=== PATIENT | female | born 1985 | race Caucasian/White ===

== ENCOUNTER 2016-04-12 11:01 | Emergency (ER) | payer MEDICAID ==
[2015-08-03 05:52] VITALS: BMI 31.3
[~2016-04-12 11:01] MED LIST: ADIPEX-P37.5 M1 PO; DIABETA5 MG PO; FOLATE0.4 MG; GLUCOPHAGE500 MG PO; GLYBURIDE5 M1 PO; HYDROCODONE-APA1 TAB PO; IBUPROFEN600 MG PO; PRENATAL COMPLE1 TAB PO; TOPAMAX200 MG PO
== END 2016-04-12 12:23 | disposition home or self-care (01) ==
LOC: D.ER 11:01
DX: S70.02XA Contusion of left hip, initial encounter (principal); W01.0XXA Fall on same level from slipping, tripping and stumbling without subsequent striking against object, initial encounter; Y93.89 Activity, other specified; Y92.39 Other specified sports and athletic area as the place of occurrence of the external cause; F17.200 Nicotine dependence, unspecified, uncomplicated; M25.552 Pain in left hip; E11.9 Type 2 diabetes mellitus without complications

== ENCOUNTER 2016-07-13 14:10 | Emergency (ER) | payer MEDICAID ==
[2015-08-03 05:52] VITALS: BMI 31.3
[2016-07-13 16:18] LABS: APPEARANCE CLEAR (CLEAR); BILIRUBIN NEGATIVE (NEGATIVE); COLOR YELLOW (YELLOW); GLUCOSE NEGATIVE (NEGATIVE); KETONE NEGATIVE (NEGATIVE); LEUKOCYTE ESTERASE TRACE (NEGATIVE); NITRITE NEGATIVE (NEGATIVE); PROTEIN TRACE mg/dL (NEGATIVE); SPECIFIC GRAVITY 1.015 (1.005-1.020); UROBILINOGEN NORMAL (NORMAL)
[2016-07-13 16:19] LABS: BASOPHILS 0.2 % (0-2); EOSINOPHILS 2.5 % (0-7); HEMATOCRIT 40.3 % (36.0-48.0); HEMOGLOBIN 13.4 g/dL (12-16); IMMATURE GRANULOCYTES 0.3 % (0-5); LYMPHOCYTES 25.8 % (15-50); MCH 30.2 pg (26.0-34.0); MCHC 33.3 g/dL (31.0-37.0); MEAN PLATELET VOLUME 10.3 fL (7.4-10.4); MONOCYTES 7.2 % (2-11); RBC 4.43 10x6/uL (4.00-5.40); RDW 12.9 % (11.5-14.5); WBC 9.2 10x3/uL (4.8-10.8)
[2016-07-13 16:19] LABS: BACTERIA MODERATE /hpf (NONE SEEN); EPITHELIAL CELLS 0-5 /hpf (0-5); RED CELLS - URINE 0-5 /hpf (0-5)
[2016-07-13 16:20] LABS: PLATELET COUNT 304 10x3/uL (130-400)
[2016-07-13 16:33] LABS: ALKALINE PHOSPHATASE 66 U/L (46-116); ALT (SGPT) 20 U/L (10-68); CALC OSMOLALITY 277 mosm/kg (275-300); CALCIUM 8.8 mg/dL (8.5-10.1); CARBON DIOXIDE 25.7 mmol/L (21.0-32.0); CHLORIDE - SERUM 105 mmol/L (98-107); CREATININE - SERUM 0.6 mg/dL (0.6-1.3); GLUCOSE 103 mg/dL (74-106); SODIUM 140 mmol/L (136-145); UREA NITROGEN 11 mg/dL (7-18); eGFR NON AFRICAN AMERICAN > 90 mL/min (90-120)
== END 2016-07-13 17:16 | disposition home or self-care (01) ==
LOC: D.ER 14:10
PROVIDERS: Emergency Medicine; Physician Assistant Medical
DX: N39.0 Urinary tract infection, site not specified (principal); E28.2 Polycystic ovarian syndrome

== ENCOUNTER 2017-02-20 08:30 | Inpatient (IN) | payer MEDICAID ==
[~2017-02-20] VITALS: Ht 175.3 cm; Wt 86.2 kg
[2017-03-28] MEDS ORDERED: LAMICTAL ODT100 MG PO (09:35)
[2017-03-31 06:08] LABS: HCG URINE NEGATIVE (NEGATIVE)
[2017-03-31 10:15] VITALS: BP 112/71
[2017-03-31 10:30] VITALS: BP 120/64
[2017-03-31 10:45] VITALS: BP 108/53
[2017-03-31 11:15] VITALS: BP 111/64
[2017-03-31 19:47] LABS: BASOPHILS 0.1 % (0-2); EOSINOPHILS 0.3 % (0-7); HEMATOCRIT 38.4 % (36.0-48.0); HEMOGLOBIN 12.9 g/dL (12-16); IMMATURE GRANULOCYTES 0.1 % (0-5); LYMPHOCYTES 16.9 % (15-50); MCHC 33.6 g/dL (31.0-37.0); MCV 89.3 fL (80.0-100.0); MEAN PLATELET VOLUME 10.5 fL (7.4-10.4); MONOCYTES 9.4 % (2-11); NEUTROPHILS 73.2 % (40-80); PLATELET COUNT 205 10x3/uL (130-400); RDW 12.6 % (11.5-14.5); WBC 11.8 10x3/uL (4.8-10.8)
[2017-03-31 19:50] VITALS: BP 101/52
[2017-03-31 20:09] LABS: ALKALINE PHOSPHATASE 49 U/L (46-116); ALT (SGPT) 13 U/L (10-68); CALC OSMOLALITY 272 mosm/kg (275-300); CARBON DIOXIDE 25.4 mmol/L (21.0-32.0); CHLORIDE - SERUM 102 mmol/L (98-107); CREATININE - SERUM 0.6 mg/dL (0.6-1.3); GLUCOSE 159 mg/dL (74-106); PROTEIN - SERUM 6.1 g/dL (6.4-8.2); SODIUM 136 mmol/L (136-145); UREA NITROGEN 8 mg/dL (7-18); eGFR NON AFRICAN AMERICAN > 90 mL/min (90-120)
[2017-03-31 23:54] VITALS: BP 90/55
[2017-04-01 03:55] VITALS: BP 101/52; BMI 28.1
[2017-04-01 06:04] LABS: BASOPHILS 0.1 % (0-2); EOSINOPHILS 2.3 % (0-7); HEMATOCRIT 38.1 % (36.0-48.0); HEMOGLOBIN 12.4 g/dL (12-16); IMMATURE GRANULOCYTES 0.2 % (0-5); LYMPHOCYTES 35.5 % (15-50); MCH 29.6 pg (26.0-34.0); MCHC 32.5 g/dL (31.0-37.0); MCV 90.9 fL (80.0-100.0); MEAN PLATELET VOLUME 10.7 fL (7.4-10.4); MONOCYTES 8.9 % (2-11); PLATELET COUNT 189 10x3/uL (130-400); RBC 4.19 10x6/uL (4.00-5.40); RDW 12.8 % (11.5-14.5); WBC 10.2 10x3/uL (4.8-10.8)
[2017-04-01 06:21] LABS: CALC OSMOLALITY 270 mosm/kg (275-300); CALCIUM 8.7 mg/dL (8.5-10.1); CARBON DIOXIDE 27.2 mmol/L (21.0-32.0); CHLORIDE - SERUM 101 mmol/L (98-107); CREATININE - SERUM 0.7 mg/dL (0.6-1.3); GLUCOSE 124 mg/dL (74-106); POTASSIUM - SERUM 3.8 mmol/L (3.5-5.1); SODIUM 136 mmol/L (136-145); UREA NITROGEN 7 mg/dL (7-18); eGFR NON AFRICAN AMERICAN > 90 mL/min (90-120)
[2017-04-01 08:27] VITALS: BP 90/50
[2017-04-01 12:43] VITALS: BP 102/52
[2017-04-01 13:26] VITALS: Ht 175.3 cm; Wt 86.2 kg
[2017-04-01 16:32] VITALS: BP 97/49
[2017-04-01 19:27] VITALS: BP 106/53
[2017-04-02 00:09] VITALS: BP 100/52
[2017-04-02 04:35] VITALS: BP 109/55
[2017-04-02 07:54] VITALS: BP 114/67
[2017-04-02] MEDS ORDERED: HYDROCODONE-APA1 TAB PO (09:17)
== END 2017-04-02 10:45 | disposition home or self-care (01) | DRG 743 ==
LOC: D.SDCHOLD 09:30 → D.LD 03-31 19:11
PROVIDERS: Obstetrics & Gynecology
PROC: 0UT90ZZ Resection of Uterus, Open Approach (ICD-10-PCS; principal; 2017-03-31)
PROC: 0UT70ZZ Resection of Bilateral Fallopian Tubes, Open Approach (ICD-10-PCS; 2017-03-31)
DX: N92.0 Excessive and frequent menstruation with regular cycle (principal); N94.6 Dysmenorrhea, unspecified; E11.9 Type 2 diabetes mellitus without complications; F32.9 Major depressive disorder, single episode, unspecified; N32.89 Other specified disorders of bladder

== ENCOUNTER 2017-02-24 23:43 | Emergency (ER) | payer MEDICAID ==
[2015-08-03 05:52] VITALS: BMI 31.3
[2017-02-25 00:52] LABS: BASOPHILS 0.2 % (0-2); EOSINOPHILS 2.3 % (0-7); HEMATOCRIT 46.1 % (36.0-48.0); IMMATURE GRANULOCYTES 0.1 % (0-5); LYMPHOCYTES 31.5 % (15-50); MCH 30.8 pg (26.0-34.0); MCHC 34.7 g/dL (31.0-37.0); MCV 88.8 fL (80.0-100.0); MEAN PLATELET VOLUME 10.8 fL (7.4-10.4); MONOCYTES 7.8 % (2-11); NEUTROPHILS 58.1 % (40-80); RBC 5.19 10x6/uL (4.00-5.40); RDW 12.3 % (11.5-14.5); WBC 9.3 10x3/uL (4.8-10.8)
[2017-02-25 00:56] LABS: PLATELET COUNT 236 10x3/uL (130-400)
[2017-02-25 01:04] LABS: HCG SERUM NEGATIVE (NEGATIVE)
[2017-02-25 01:06] LABS: APPEARANCE CLEAR (CLEAR); BILIRUBIN NEGATIVE (NEGATIVE); COLOR YELLOW (YELLOW); GLUCOSE NEGATIVE (NEGATIVE); KETONE NEGATIVE (NEGATIVE); NITRITE NEGATIVE (NEGATIVE); PROTEIN NEGATIVE (NEGATIVE); UDS - AMPHET NEGATIVE QUAL (NEGATIVE); UDS - BARB NEGATIVE QUAL (NEGATIVE); UDS - BENZO NEGATIVE QUAL (NEGATIVE); UDS - COCAINE NEGATIVE QUAL (NEGATIVE); UDS - OPIATE NEGATIVE QUAL (NEGATIVE); UDS - PCP NEGATIVE QUAL (NEGATIVE); UDS - THC NEGATIVE QUAL (NEGATIVE); UROBILINOGEN NORMAL (NORMAL)
[2017-02-25 01:09] LABS: BACTERIA FEW /hpf (NONE SEEN); EPITHELIAL CELLS 0-5 /hpf (0-5); MUCUS <1+ /lpf (NONE SEEN); RED CELLS - URINE NONE SEEN /hpf (0-5); WHITE CELLS - URINE 0-5 /hpf (0-5)
[2017-02-25 01:09] LABS: ALKALINE PHOSPHATASE 54 U/L (46-116); ALT (SGPT) 20 U/L (10-68); AMYLASE - SERUM 60 U/L (25-115); BILIRUBIN - TOTAL 0.29 mg/dL (0.2-1.3); CALC OSMOLALITY 276 mosm/kg (275-300); CALCIUM 9.7 mg/dL (8.5-10.1); CARBON DIOXIDE 24.4 mmol/L (21.0-32.0); CHLORIDE - SERUM 101 mmol/L (98-107); CREATININE - SERUM 0.7 mg/dL (0.6-1.3); GLUCOSE 107 mg/dL (74-106); LIPASE 138 U/L (73-393); POTASSIUM - SERUM 3.8 mmol/L (3.5-5.1); PROTEIN - SERUM 7.6 g/dL (6.4-8.2); SODIUM 138 mmol/L (136-145); UREA NITROGEN 14 mg/dL (7-18); eGFR NON AFRICAN AMERICAN > 90 mL/min (90-120)
== END 2017-02-25 02:30 | disposition home or self-care (01) ==
LOC: D.ER 23:43
PROVIDERS: Family Medicine
DX: R10.9 Unspecified abdominal pain (principal); E11.9 Type 2 diabetes mellitus without complications; E28.2 Polycystic ovarian syndrome; F17.200 Nicotine dependence, unspecified, uncomplicated

== ENCOUNTER 2018-01-03 21:57 | Emergency (ER) | payer MEDICAID ==
[~2018-01-03] VITALS: Ht 175.3 cm; Wt 88.6 kg
[~2018-01-03 21:57] MED LIST changes: +LAMICTAL ODT100 MG PO
[2018-01-03 22:03] VITALS: Ht 175.3 cm; Wt 88.6 kg
[2018-01-03 22:32] LABS: BASOPHILS 0.2 % (0-2); EOSINOPHILS 5.2 % (0-7); HEMATOCRIT 43.4 % (36.0-48.0); IMMATURE GRANULOCYTES 0.1 % (0-5); LYMPHOCYTES 38.8 % (15-50); MCH 31.2 pg (26.0-34.0); MCHC 34.6 g/dL (31.0-37.0); MCV 90.2 fL (80.0-100.0); MEAN PLATELET VOLUME 10.9 fL (7.4-10.4); MONOCYTES 7.4 % (2-11); NEUTROPHILS 48.3 % (40-80); PLATELET COUNT 213 10x3/uL (130-400); RBC 4.81 10x6/uL (4.00-5.40); RDW 12.6 % (11.5-14.5); WBC 8.1 10x3/uL (4.8-10.8)
[2018-01-03 22:41] LABS: ALBUMIN 3.2 g/dL (3.4-5.0); ALKALINE PHOSPHATASE 62 U/L (46-116); ALT (SGPT) 24 U/L (10-68); BILIRUBIN - TOTAL 0.23 mg/dL (0.2-1.3); CALC OSMOLALITY 283 mosm/kg (275-300); CALCIUM 8.7 mg/dL (8.5-10.1); CARBON DIOXIDE 27.3 mmol/L (21.0-32.0); CHLORIDE - SERUM 105 mmol/L (98-107); CREATININE - SERUM 0.7 mg/dL (0.6-1.3); GLUCOSE 170 mg/dL (74-106); POTASSIUM - SERUM 3.7 mmol/L (3.5-5.1); PROTEIN - SERUM 6.9 g/dL (6.4-8.2); SODIUM 140 mmol/L (136-145); UREA NITROGEN 14 mg/dL (7-18); eGFR NON AFRICAN AMERICAN > 90 mL/min (90-120)
[2018-01-03 22:45] LABS: AMYLASE - SERUM 68 U/L (25-115); LIPASE 184 U/L (73-393); TROPONIN-I < 0.017 ng/mL (0.000-0.060)
[2018-01-04 00:24] LABS: APPEARANCE CLEAR (CLEAR); BILIRUBIN NEGATIVE (NEGATIVE); COLOR YELLOW (YELLOW); GLUCOSE NEGATIVE (NEGATIVE); KETONE NEGATIVE (NEGATIVE); NITRITE NEGATIVE (NEGATIVE); PROTEIN NEGATIVE (NEGATIVE); UROBILINOGEN NORMAL (NORMAL)
[2018-01-04] MEDS ORDERED: NAPROSYN500 MG PO (02:01)
[2018-01-04 02:24] VITALS: BP 101/48
== END 2018-01-04 02:24 | disposition home or self-care (01) ==
LOC: D.ER 21:57
PROVIDERS: Family Medicine
DX: R10.30 Lower abdominal pain, unspecified (principal); Q24.8 Other specified congenital malformations of heart; E11.9 Type 2 diabetes mellitus without complications; F17.200 Nicotine dependence, unspecified, uncomplicated

== ENCOUNTER 2018-04-13 21:05 | Emergency (ER) | payer MEDICAID ==
[~2018-04-13] VITALS: Ht 175.3 cm; Wt 88.6 kg
[~2018-04-13 21:05] MED LIST changes: +NAPROSYN500 MG PO
[2018-04-13 21:11] VITALS: Ht 175.3 cm; Wt 88.6 kg
[2018-04-13] MEDS ORDERED: GABAPENTIN100 MG PO (21:13)
[2018-04-13] MEDS ORDERED: ULTRAM50 MG PO (21:13)
[2018-04-13] MEDS ORDERED: TORADOL10 MG PO (22:42)
[2018-04-13 23:27] VITALS: BP 178/84
== END 2018-04-13 23:28 | disposition home or self-care (01) ==
LOC: D.ER 21:05
DX: S93.401A Sprain of unspecified ligament of right ankle, initial encounter (principal); X58.XXXA Exposure to other specified factors, initial encounter; Y93.89 Activity, other specified; Y92.019 Unspecified place in single-family (private) house as the place of occurrence of the external cause

== ENCOUNTER 2018-05-22 16:10 | Emergency (ER) | payer MEDICAID ==
[~2018-05-22] VITALS: Ht 175.3 cm; Wt 92.3 kg
[~2018-05-22 16:10] MED LIST changes: +GABAPENTIN100 MG PO; +TORADOL10 MG PO; +ULTRAM50 MG PO
[2018-05-22 16:14] VITALS: Ht 175.3 cm; Wt 92.3 kg
[2018-05-22] MEDS ORDERED: MEDROL DOSE PACK4 MG PO (19:41)
[2018-05-22] MEDS ORDERED: ROBAXIN500 MG PO (19:41)
[2018-05-22] MEDS ORDERED: ULTRAM50 MG PO (19:41)
[2018-05-22 20:23] VITALS: BP 121/83
== END 2018-05-22 20:23 | disposition home or self-care (01) ==
LOC: D.ER 16:10
DX: S32.2XXA Fracture of coccyx, initial encounter for closed fracture (principal); W18.30XA Fall on same level, unspecified, initial encounter; Y93.89 Activity, other specified; Y92.019 Unspecified place in single-family (private) house as the place of occurrence of the external cause; M53.3 Sacrococcygeal disorders, not elsewhere classified

== ENCOUNTER 2018-06-14 11:38 | Emergency (ER) | payer MEDICAID ==
[~2018-06-14] VITALS: Ht 175.3 cm; Wt 88.6 kg
[~2018-06-14 11:38] MED LIST changes: +MEDROL DOSE PACK4 MG PO; +ROBAXIN500 MG PO
[2018-06-14 11:52] VITALS: Ht 175.3 cm; Wt 88.6 kg
[2018-06-14] MEDS ORDERED: TYLENOL W/CODEI1 TAB PO (12:29)
[2018-06-14] MEDS ORDERED: ERYTHROMYCIN OPT1 GM LEFT EYE (12:29)
[2018-06-14 12:56] VITALS: BP 117/65
== END 2018-06-14 12:57 | disposition home or self-care (01) ==
LOC: D.ER 11:38
DX: S05.02XA Injury of conjunctiva and corneal abrasion without foreign body, left eye, initial encounter (principal); W22.8XXA Striking against or struck by other objects, initial encounter; Y93.89 Activity, other specified; Y92.89 Other specified places as the place of occurrence of the external cause

== ENCOUNTER 2018-07-21 16:46 | Emergency (ER) | payer MEDICAID ==
[~2018-07-21] VITALS: Ht 175.3 cm; Wt 95.0 kg
[~2018-07-21 16:46] MED LIST changes: +ERYTHROMYCIN OPT1 GM LEFT EYE; +TYLENOL W/CODEI1 TAB PO
[2018-07-21 16:50] VITALS: Ht 175.3 cm; Wt 95.0 kg
[2018-07-21] MEDS ORDERED: POLYTRIM EYE DR10 ML LEFT EYE (17:44)
[2018-07-21 17:53] VITALS: BP 143/72
== END 2018-07-21 17:54 | disposition home or self-care (01) ==
LOC: D.ER 16:46
DX: H10.32 Unspecified acute conjunctivitis, left eye (principal)

== ENCOUNTER 2018-08-25 16:34 | Observation (INO) | payer MEDICAID ==
[~2018-08-25] VITALS: Ht 175.3 cm; Wt 84.5 kg
[~2018-08-25 16:34] MED LIST changes: +POLYTRIM EYE DR10 ML LEFT EYE
[2018-08-25 17:57] LABS: BASOPHILS 0.2 % (0-2); EOSINOPHILS 0.7 % (0-7); HEMATOCRIT 43.5 % (36.0-48.0); HEMOGLOBIN 15.3 g/dL (12-16); IMMATURE GRANULOCYTES 0.3 % (0-5); LYMPHOCYTES 17.6 % (15-50); MCH 31.2 pg (26.0-34.0); MCHC 35.2 g/dL (31.0-37.0); MCV 88.6 fL (80.0-100.0); MEAN PLATELET VOLUME 10.9 fL (7.4-10.4); MONOCYTES 5.6 % (2-11); NEUTROPHILS 75.6 % (40-80); PLATELET COUNT 214 10x3/uL (130-400); RBC 4.91 10x6/uL (4.00-5.40); RDW 12.8 % (11.5-14.5)
[2018-08-25 18:14] LABS: ALBUMIN 3.5 g/dL (3.4-5.0); ALKALINE PHOSPHATASE 68 U/L (46-116); ALT (SGPT) 24 U/L (10-68); BILIRUBIN - TOTAL 0.42 mg/dL (0.2-1.3); C-REACTIVE PROTEIN 2.2 mg/dL (0.0-0.9); CALC OSMOLALITY 274 mosm/kg (275-300); CALCIUM 9.1 mg/dL (8.5-10.1); CARBON DIOXIDE 26.1 mmol/L (21.0-32.0); CHLORIDE - SERUM 102 mmol/L (98-107); CREATININE - SERUM 0.6 mg/dL (0.6-1.3); GLUCOSE 103 mg/dL (74-106); POTASSIUM - SERUM 3.7 mmol/L (3.5-5.1); PROTEIN - SERUM 7.3 g/dL (6.4-8.2); SODIUM 138 mmol/L (136-145); UREA NITROGEN 9 mg/dL (7-18); eGFR NON AFRICAN AMERICAN > 90 mL/min (90-120)
[2018-08-25 18:36] VITALS: BP 115/75
--- NOTE | 2018-08-25 18:46 | NUR ---
PT SITTING IN BED. RESPIRATIONS ARE EVEN AND UNLABORED. NO DISTRESS NOTED AT THIS TIME. VSS. COLOR WNL FOR RACE. WILL CONTINUE TO MONITOR. UPDATED PATIENT ON PLAN OF CARE. ADVISED WAITING ON ROOM TO BE CLEANED AT THIS TIME. IV PATENT AND INFUSING AT THIS TIME WITH NO REDNESS OR SIGNS OF INFILTRATION NOTED.
--- NOTE | 2018-08-25 19:04 | NUR ---
THIS NURSE PRESENT IN ROOM WHILE SURGEON OBSERVES PT. PT LAYING SEMI-FOWLERS IN BED, RESPIRATIONS EVEN AND UNLABORED.
[2018-08-25 21:47] VITALS: BP 111/75
[2018-08-26 00:10] VITALS: BP 111/75; Ht 175.3 cm; Wt 84.5 kg
[2018-08-26 01:23] VITALS: BP 102/58
[2018-08-26 04:53] VITALS: BP 96/50
[2018-08-26 07:46] LABS: BASOPHILS 0.2 % (0-2); EOSINOPHILS 2.8 % (0-7); HEMATOCRIT 40.8 % (36.0-48.0); HEMOGLOBIN 13.5 g/dL (12-16); IMMATURE GRANULOCYTES 0.2 % (0-5); LYMPHOCYTES 22.4 % (15-50); MCH 30.1 pg (26.0-34.0); MCHC 33.1 g/dL (31.0-37.0); MEAN PLATELET VOLUME 11.3 fL (7.4-10.4); MONOCYTES 8.5 % (2-11); NEUTROPHILS 65.9 % (40-80); PLATELET COUNT 182 10x3/uL (130-400); RBC 4.48 10x6/uL (4.00-5.40)
[2018-08-26 07:55] LABS: MCV 91.1 fL (80.0-100.0)
--- NOTE | 2018-08-26 07:56 | NUR ---
PT RESTING IN BED. NO ACUTE DISTRESS NOTED. PT NPO FOR UPCOMING PROCEDURE. 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 IV TO LEFT WRIST WITH NS @ 125ML/HR INFUSING VIA PUMP. SITE WITHOUT REDNESS OR EDEMA. NO DRAINAGE AT THIS TIME FROM RIGHT BREAST, TENDER TO TOUCH SITE REDENED. DENIES FURTHER NEEDS AT THIS TIME. CL WITHIN REACH. ENCOURAGED TO CALL WITH NEEDS. CONTINUE POC
[2018-08-26 08:04] LABS: ALBUMIN 2.8 g/dL (3.4-5.0); ALKALINE PHOSPHATASE 58 U/L (46-116); ALT (SGPT) 20 U/L (10-68); BILIRUBIN - TOTAL 0.35 mg/dL (0.2-1.3); CALC OSMOLALITY 284 mosm/kg (275-300); CALCIUM 8.6 mg/dL (8.5-10.1); CARBON DIOXIDE 28.1 mmol/L (21.0-32.0); CHLORIDE - SERUM 107 mmol/L (98-107); CREATININE - SERUM 0.7 mg/dL (0.6-1.3); GLUCOSE 117 mg/dL (74-106); MAGNESIUM - SERUM 1.7 mg/dL (1.8-2.4); PHOSPHOROUS 4.3 mg/dL (2.5-4.9); POTASSIUM - SERUM 3.7 mmol/L (3.5-5.1); PROTEIN - SERUM 6.2 g/dL (6.4-8.2); SODIUM 143 mmol/L (136-145); UREA NITROGEN 11 mg/dL (7-18); eGFR NON AFRICAN AMERICAN > 90 mL/min (90-120)
[2018-08-26 08:39] VITALS: BP 98/68
--- NOTE | 2018-08-26 09:25 | NUR ---
PRE OP HERE TO TAKE PT TO SURGERY. NO ACUTE DISTRESS NOTED. TAKEN VIA BED
--- NOTE | 2018-08-26 10:50 | NUR ---
PT RETURNED FROM SURGERY VIA BED. ALERT AND ORIENTED. DRESSING C/D/I TO RIGHT BREAST. NO ACUTE DISTRESS NOTED. O2 @ 2L NC IN PLACE O2 SATS 98-100%. DECREASED O2 TO 1L AT THIS TIME. PT PABLO WELL. IV TO LEFT WRIST REMAINS INTACT AND PATENT. CL WITHIN REACH. ENCOURAGED TO CALL WITH NEEDS.
[2018-08-26] MEDS ORDERED: KEFLEX500 MG PO (11:30)
[2018-08-26] MEDS ORDERED: HYDROCODON-ACE1 EAC7 PO (11:31)
[2018-08-26 13:13] VITALS: BP 133/70
--- NOTE | 2018-08-26 13:25 | NUR ---
PT DISCHARGE INSTRUCTIONS GIVEN WITH PRESCRIPTIONS. DISCUSSED S/S OF INFECTION, LEAVING DRESSING INTACT TO RIGHT BREAST UNTIL SEEN BY DR. DIGGS ON Friday08/28/18. IV FROM LEFT WRIST D/C'D , CATH INTACT. DISCUSSED FOLLOW UP WITH DR. DIGGS ON 08/28/18. PT VOICES UNDERSTANDING. NO QUESTIONS VOICED AT THIS TIME. PT TAKEN OUT VIA W/C TO PRIVATE VEHICLE WITH ALL PERSONAL BELONGINGS.
--- NOTE | 2018-08-27 17:31 | DS ---
PATIENT:BULL DÍAZ :85 MEDICAL RECORD: [id number] DISCHARGE SUMMARY ADMISSION DATE: 08/25/18 DISCHARGE DATE: 08/26/18 PREOPERATIVE DIAGNOSIS: Right breast abscess. PROCEDURE: Incision and drainage of right breast abscess. OTHER DIAGNOSES: Include history of left hip surgery, history of right knee surgery, history of partial hysterectomy, history of , history of hysteroscopy with endometrial ablation. HOSPITAL COURSE: The patient presented to the Emergency Room with the right breast abscess. She underwent an ultrasound of this. She then underwent incision and drainage of the right breast abscess with packing. She is being dismissed home on [facility] as well as [place]. I or my nurse will see her in the office on Friday for packing removal. TRANSINT:[id number] Voice Confirmation ID: [id number] DOCUMENT ID: [id number] ANDREA DIGGS MD at 1731 CC: [id number] DICTATION DATE: 08/26/18 1021 LEGAL RESEARCHER: 08/26/18 1531 DIS IN 08/26/18 [facility] [address] [place] [address]
--- NOTE | 2018-08-28 16:07 | OP ---
PATIENT NAME: BULL DÍAZ MEDICAL RECORD: [id number] :85 LOCATION:D.MS [id number] ADMISSION DATE:08/25/18 SURGEON: JAVI DIGGS MD DATE OF OPERATION: 08/26/2018 PREOPERATIVE DIAGNOSIS: Right breast abscess. POSTOPERATIVE DIAGNOSIS: Right breast abscess. PROCEDURE: Incision and drainage of right breast abscess with packing. SURGEON: Javi Diggs MD SUPERVISOR PREP: None. BLOOD LOSS: Minimal. ANESTHESIA: General. COMPLICATIONS: None. The risks, possible complications, and alternatives to the procedure were explained to the patient. She elects to proceed. OPERATIVE COURSE: The patient was conveyed to the operating room electively on 08/26/2018. General anesthesia was induced by anesthesia staff. The right breast was sterilely prepped and draped. I interrogated the right breast with the ultrasound. I noted the abscess cavity. I compressed the breast. Purulence came out from both sides of where she had had the bar through her nipple. I made an axial incision at 3 o'clock. I then inserted a hemostat and spread it with the hemostat. I was able to express a large amount of purulence. Cultures were obtained. I irrigated in the wound with hydrogen peroxide. I then packed the wound with 1-inch iodoform gauze. A sterile dressing was applied. The patient was then extubated and conveyed to post-anesthesia care unit where she was in stable condition. She will be dismissed home on [facility] as well as [place]. I will see her in the office on Friday for packing removal. TRANSINT:[id number] Voice Confirmation ID: [id number] DOCUMENT ID: [id number] JAVI DIGGS MD at 1607 CC: ELISEO ELIZABETH [id number] DICTATION DATE: 08/26/18 1006 INDUSTRIAL TECHNOLOGIST: 08/26/18 1041 DIS IN 08/26/18 [place] [id number] [place] [id number]
--- NOTE | 2018-09-01 07:20 | MORECARE ---
CASE MANAGEMENT DISCHARGE SUMMARY PATIENT: BULL DÍAZ UNIT: [id number] ADM DATE: 08/25/18 AGE: 33 : 85 SEX: F ROOM/BED: [facility] AUTHOR: CHEYENNE CARROLL PHYSICIAN: REFERRING PHYSICIAN: ANDREA DIGGS MD DATE OF SERVICE: 09/01/18 Discharge Plan Patient Name: BULL DÍAZ Facility: [facility]:[place] : 1985 Planned Disposition: Anticipated Discharge Date: Discharge Date: 08/26/2018 Expected LOS: 0 Initial Reviewer: [email or web address] Initial Review Date: 09/01/2018 Generated: 09/01/18 8:20 am Patient Name: BULL DÍAZ Page [id number] at 0720 All edits/amendments must be made on the electronic document DICTATION DATE: 09/01/18719 TEACHER DRAMA: LILLY 09/01/18719 RPT#: [id number] DC DATE:08/26/18 STATUS: DIS IN [facility] [address] [place] [address] END OF REPORT
[2018-09-01 13:10] LABS: AEROBE ID Final report (())
== END 2018-08-26 13:25 | disposition home or self-care (01) ==
LOC: D.ER 16:34 → D.MS 18:36 → OBSVTIME 18:38 → D.MS 08-26 13:25
PROVIDERS: Family Medicine; ADMIT Surgery; ATTEND Surgery
DX: N61.1 Abscess of the breast and nipple (principal)

== ENCOUNTER 2018-10-30 16:14 | Emergency (ER) | payer MEDICAID ==
[~2018-10-30] VITALS: Ht 175.3 cm; Wt 93.2 kg
[~2018-10-30 16:14] MED LIST changes: +HYDROCODON-ACE1 EAC7 PO; +KEFLEX500 MG PO
[2018-10-30 16:35] VITALS: Ht 175.3 cm; Wt 93.2 kg
[2018-10-30] MEDS ORDERED: SPRINTEC 28 DA1 EAC1 PO (16:40)
[2018-10-30 16:59] LABS: BASOPHILS 0.3 % (0-2); EOSINOPHILS 1.8 % (0-7); HEMATOCRIT 42.4 % (36.0-48.0); HEMOGLOBIN 14.8 g/dL (12-16); IMMATURE GRANULOCYTES 0.1 % (0-5); LYMPHOCYTES 21.1 % (15-50); MCH 30.6 pg (26.0-34.0); MCHC 34.9 g/dL (31.0-37.0); MCV 87.6 fL (80.0-100.0); MEAN PLATELET VOLUME 10.9 fL (7.4-10.4); MONOCYTES 6.6 % (2-11); NEUTROPHILS 70.1 % (40-80); PLATELET COUNT 203 10x3/uL (130-400); RBC 4.84 10x6/uL (4.00-5.40); RDW 12.8 % (11.5-14.5); WBC 10.1 10x3/uL (4.8-10.8)
[2018-10-30 17:53] LABS: ALBUMIN 3.6 g/dL (3.4-5.0); ALKALINE PHOSPHATASE 58 U/L (46-116); ALT (SGPT) 17 U/L (10-68); BILIRUBIN - TOTAL 0.55 mg/dL (0.2-1.3); CALC OSMOLALITY 274 mosm/kg (275-300); CALCIUM 8.8 mg/dL (8.5-10.1); CARBON DIOXIDE 25.7 mmol/L (21.0-32.0); CHLORIDE - SERUM 104 mmol/L (98-107); CREATININE - SERUM 0.8 mg/dL (0.6-1.3); GLUCOSE 151 mg/dL (74-106); POTASSIUM - SERUM 3.6 mmol/L (3.5-5.1); PROTEIN - SERUM 7.6 g/dL (6.4-8.2); SODIUM 137 mmol/L (136-145); UREA NITROGEN 7 mg/dL (7-18); eGFR NON AFRICAN AMERICAN 87 mL/min (90-120)
[2018-10-30] MEDS ORDERED: CLEOCIN HCL300 MG PO (19:54)
[2018-10-30 20:40] VITALS: BP 99/75
== END 2018-10-30 20:40 | disposition home or self-care (01) ==
LOC: D.ER 16:14
PROVIDERS: Family Medicine
DX: N61.0 Mastitis without abscess (principal)

== ENCOUNTER 2020-07-21 05:45 | Day surgery (SDC) | payer MEDICAID ==
[2020-07-18 11:04] LABS: BASOPHILS 0.8 % (0-2); EOSINOPHILS 1.9 % (0-7); HEMATOCRIT 46.2 % (36.0-48.0); HEMOGLOBIN 15.6 g/dL (12-16); MCH 29.7 pg (26.0-34.0); MCHC 33.7 g/dL (31.0-37.0); MCV 88.1 fL (80.0-100.0); MEAN PLATELET VOLUME 8.9 fL (7.4-10.4); MONOCYTES 7.4 % (2-11); NEUTROPHILS 68.9 % (40-80); PLATELET COUNT 241 10x3/uL (130-400); RBC 5.24 10x6/uL (4.00-5.40); RDW 12.9 % (11.5-14.5); WBC 10.4 10x3/uL (4.8-10.8)
[2020-07-18 11:12] LABS: CALC OSMOLALITY 272 mosm/kg (275-300); CALCIUM 9.1 mg/dL (8.5-10.1); CARBON DIOXIDE 23.7 mmol/L (21.0-32.0); CHLORIDE - SERUM 103 mmol/L (98-107); CREATININE - SERUM 0.6 mg/dL (0.6-1.3); GLUCOSE 104 mg/dL (74-106); POTASSIUM - SERUM 3.9 mmol/L (3.5-5.1); SODIUM 137 mmol/L (136-145); UREA NITROGEN 10 mg/dL (7-18); eGFR NON AFRICAN AMERICAN > 90 mL/min (90-120)
[~2020-07-21] VITALS: Ht 175.3 cm; Wt 100.2 kg
[~2020-07-21 05:45] MED LIST changes: +CLEOCIN HCL300 MG PO; +SPRINTEC 28 DA1 EAC1 PO
[2020-07-21 06:54] VITALS: BP 115/67; Ht 175.3 cm; Wt 100.2 kg
--- NOTE | 2020-07-21 08:54 | NUR ---
PT AWAKENING, OPA REMOVED
--- NOTE | 2020-07-21 11:01 | NUR ---
AMBULATED TO BR AND VOIDED WIHTOUT DIFFICULTY. IV D/C'D WITH CANNULA INTACT, PRESSURE HELD AND DRSG PLACED. DISCHARGE INSTRUCTIONS GIVEN AND PT VERBALIZED AN UNDERSTANDING. DISCHARGED HOME IN STABLE CONDITION.
--- NOTE | 2020-08-07 15:57 | OP ---
PATIENT NAME: BULL DÍAZ MEDICAL RECORD: [id number] :85 LOCATION:D.OPS ADMISSION DATE: SURGEON: JI AARON MD DATE OF OPERATION: 07/21/2020 PREOPERATIVE DIAGNOSES: 1. Chronic pelvic pain, status post hysterectomy. 2. 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 3. Hypervascular small bowel noted. POSTOPERATIVE DIAGNOSES: 1. Chronic pelvic pain, status post hysterectomy. 2. 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 3. Hypervascular small bowel noted. PROCEDURE: Diagnostic laparoscopy. SURGEON: Ji Aaron MD ANESTHESIA: General endotracheal. INTRAVENOUS FLUIDS: Per anesthesia record. SPECIMENS: None. COMPLICATIONS: None apparent. ESTIMATED BLOOD LOSS: Minimal. FINDINGS: 1. Extensive adhesive disease involving the omentum and the anterior abdominal wall, obscuring the placement of lower abdominal trocars and obscuring visualization of the pelvis. 2. Hypervascular loops of small bowel noted consistent with enteritis. PROCEDURE: The patient was taken to the operating room where general anesthesia was achieved without difficulty. The patient was prepped and draped in normal sterile fashion in the dorsal supine position. The bladder had been drained of approximately 200 cc of clear yellow urine. At this point, attention was turned to the umbilicus where a 5-mm incision was made in the inferior aspect of the umbilicus. A 5 mm bladeless trocar was used to enter the intraperitoneal space under direct visualization of the laparoscope. The introducer was removed and the camera revealed intraperitoneal placement. The patient was then insufflated and opening pressure was found to be less than 8 mmHg. The patient was then insufflated and the scope was placed and intraperitoneal placement was confirmed. Dense omental adhesions were noted to previous Pfannenstiel skin incision allowing only minimal visualization from the umbilical port. I saw that it was unsafe to place any further ports secondary to obscured visualization. Attempts were made to view the area of question in the pelvis. However, visualization was limited due to the omentum. The scope was removed and the patient was desufflated and trocars removed. The skin was repaired with 3-0 Vicryl in an interrupted fashion. The patient tolerated the procedure well and was transported to postanesthesia recovery stable without incident. OPERATIVE REPORT [id number] BULL DÍAZ TRANSINT:[id number] Voice Confirmation ID: [id number] DOCUMENT ID: [id number] JI AARON MD at 1557 CC: [id number] DICTATION DATE: 08/07/20316 QUALITY CONTROL TECH: 08/07/20 0650 [facility] 07/21/20 [place] [id number] [place] [id number]
== END 2020-07-21 11:00 | disposition home or self-care (01) ==
LOC: D.OPS 05:45
PROVIDERS: Anesthesiology; ATTEND Obstetrics & Gynecology
DX: R10.2 Pelvic and perineal pain (principal); Z98.890 Other specified postprocedural states; K66.0 Peritoneal adhesions (postprocedural) (postinfection); K63.89 Other specified diseases of intestine

== ENCOUNTER 2020-07-23 22:44 | Emergency (ER) | payer MEDICAID ==
[~2020-07-23] VITALS: Ht 175.3 cm; Wt 95.5 kg
[2020-07-23 22:51] VITALS: BP 141/85; Ht 175.3 cm; Wt 95.5 kg
[2020-07-23] MEDS ORDERED: KENALOG 0.1 % 115 GM TOPICAL (23:41)
[2020-07-23] MEDS ORDERED: HYDROXYZINE HCL50 MG PO (23:41)
[2020-07-23] MEDS ORDERED: MEDROL DOSE PACK4 MG PO (23:41)
== END 2020-07-23 23:59 | disposition home or self-care (01) ==
LOC: D.ER 22:44
DX: T78.49XA Other allergy, initial encounter (principal); L73.9 Follicular disorder, unspecified; K21.9 Gastro-esophageal reflux disease without esophagitis; R21 Rash and other nonspecific skin eruption